=== PATIENT | female | born 1990 | race Caucasian/White ===

== ENCOUNTER 2020-09-01 17:51 | Emergency (ER) | payer OTHER ==
[~2020-09-01 17:51] MED LIST: IBUPROFEN600 MG PO; NORCO 5-325 TA1 EACH PO
[2020-09-01 21:54] LABS: HEMOGLOBIN 15.1 gm/dl (12.3-15.3); RED BLOOD COUNT 4.75 M/UL (4.00-5.10); WHITE BLOOD COUNT 11.7 K/UL (4.5-11.0)
[2020-09-01 22:09] LABS: BUN/CREATININE RATIO 19 (0-10)
[2020-09-01] MEDS ORDERED: BENTYL 20MG TAB20 MG PO (23:07)
[2020-09-01] MEDS ORDERED: ZOFRAN ODT 4 MG4 MG PO (23:07)
[2020-09-05 07:11] LABS: ADENOVIRUS F 40/41 Not Detected (Not Detected); ASTROVIRUS Not Detected (Not Detected); C DIFFICILE TOXIN A/B Detected (Not Detected); CAMPYLOBACTER Not Detected (Not Detected); CRYPTOSPORIDIUM Not Detected (Not Detected); CYCLOSPORA CAYETANENSIS Not Detected (Not Detected); ENTAMOEBA HISTOLYTICA Not Detected (Not Detected); ENTEROAGGREGATIVE E COLI Not Detected (Not Detected); ENTEROPATHOGENIC E COLI Not Detected (Not Detected); ENTEROTOXIGENIC E COLI Not Detected (Not Detected); GIARDIA LAMBLIA Not Detected (Not Detected); NOROVIRUS GI/GII Not Detected (Not Detected); PLESIOMONAS SHIGELLOIDES Not Detected (Not Detected); ROTAVIRUS A Not Detected (Not Detected); SALMONELLA Not Detected (Not Detected); SAPOVIRUS Not Detected (Not Detected); SHIGA-TOXIN-PRODUCING E COLI Not Detected (Not Detected); SHIGELLA/ENTEROINVASIVE E COLI Not Detected (Not Detected); VIBRIO Not Detected (Not Detected); VIBRIO CHOLERAE Not Detected (Not Detected); YERSINIA ENTEROCOLITICA Not Detected (Not Detected)
== END 2020-09-02 00:25 | disposition home or self-care (01) ==
LOC: ER1 17:51
PROVIDERS: Physician Assistant; Physician Assistant Medical
DX: R11.2 Nausea with vomiting, unspecified (principal); R19.7 Diarrhea, unspecified; R10.84 Generalized abdominal pain; Z20.822 Contact with and (suspected) exposure to COVID-19; E11.9 Type 2 diabetes mellitus without complications; I10 Essential (primary) hypertension; F17.210 Nicotine dependence, cigarettes, uncomplicated; Z90.49 Acquired absence of other specified parts of digestive tract; Z88.8 Allergy status to other drugs, medicaments and biological substances
CPT/HCPCS: 80053; 81001; 83605; 83690; 84703; 85025; 87507; 96374; 96375; 99284; J1885; J2405; U0002

== ENCOUNTER 2020-09-08 22:43 | Emergency (ER) | payer OTHER ==
[~2020-09-08 22:43] MED LIST changes: +BENTYL 20MG TAB20 MG PO; +ZOFRAN ODT 4 MG4 MG PO
[2020-09-08 23:58] LABS: HEMOGLOBIN 15.6 gm/dl (12.3-15.3); RED BLOOD COUNT 5.11 M/UL (4.00-5.10); WHITE BLOOD COUNT 17.7 K/UL (4.5-11.0)
[2020-09-09 00:12] LABS: BUN/CREATININE RATIO 17 (0-10)
[2020-09-09] MEDS ORDERED: FLAGYL500 MG PO (06:15)
[2020-09-09] MEDS ORDERED: PHENERGAN 12.12.5 M1 PO (06:15)
[2020-09-09] MEDS ORDERED: BENTYL 20MG TAB20 MG PO (06:15)
== END 2020-09-09 06:51 | disposition home or self-care (01) ==
LOC: ER1 22:43
PROVIDERS: Emergency Medicine
DX: A04.72 Enterocolitis due to Clostridium difficile, not specified as recurrent (principal); I10 Essential (primary) hypertension; E11.9 Type 2 diabetes mellitus without complications; Z88.8 Allergy status to other drugs, medicaments and biological substances
CPT/HCPCS: 80053; 81001; 82550; 82553; 83605; 83690; 84484; 84703; 85025; 99284; Q9967

== ENCOUNTER 2021-07-29 15:38 | Emergency (ER) | payer OTHER ==
[~2021-07-29 15:38] MED LIST changes: +FLAGYL500 MG PO; +PHENERGAN 12.12.5 M1 PO
[2021-07-29 16:19] LABS: HEMOGLOBIN 15.4 gm/dl (12.3-15.3); RED BLOOD COUNT 4.77 M/UL (4.00-5.10); WHITE BLOOD COUNT 8.9 K/UL (4.5-11.0)
[2021-07-29 16:51] LABS: BUN/CREATININE RATIO 17 (0-10)
[2021-07-29] MEDS ORDERED: BENTYL 20MG TAB20 MG PO (20:54)
[2021-07-29] MEDS ORDERED: LODINE CAP 300300 MG PO (20:54)
[2021-07-29] MEDS ORDERED: ZOFRAN ODT 4 MG4 MG PO (20:54)
== END 2021-07-29 21:40 | disposition home or self-care (01) ==
LOC: ER1 15:38
PROVIDERS: Physician Assistant
DX: U07.1 COVID-19 (principal); R10.13 Epigastric pain; E11.9 Type 2 diabetes mellitus without complications; I10 Essential (primary) hypertension; Z88.8 Allergy status to other drugs, medicaments and biological substances; F17.200 Nicotine dependence, unspecified, uncomplicated
CPT/HCPCS: 0240U; 80053; 81001; 82150; 83690; 84703; 85025; 96374; 96375; 99284; J2270; J2405; Q9967

== ENCOUNTER 2021-08-29 07:33 | Emergency (ER) | payer OTHER ==
[~2021-08-29 07:33] MED LIST changes: +LODINE CAP 300300 MG PO
[2021-08-29] MEDS ORDERED: ENDOCET 5-3251 EACH PO (11:18)
[2021-08-29] MEDS ORDERED: CYCLOBENZAPRINE10 MG PO (11:18)
== END 2021-08-29 13:05 | disposition home or self-care (01) ==
LOC: ER1 07:33
DX: S23.3XXA Sprain of ligaments of thoracic spine, initial encounter (principal); X58.XXXA Exposure to other specified factors, initial encounter
CPT/HCPCS: 71046; 72128; 96374; 96375; 99284; J1170; J2360